=== PATIENT | male | born 1945 | race Caucasian/White ===

== ENCOUNTER 2022-06-03 15:32 | Outpatient (CLI) | payer MEDICARE, BC | END 2022-06-03 15:33 | disposition home or self-care (01) | LOC: CSHRAD 15:32 | PROVIDERS: ATTEND Internal Medicine | DX: S93.401A Sprain of unspecified ligament of right ankle, initial encounter (principal); M25.571 Pain in right ankle and joints of right foot; M25.471 Effusion, right ankle; S82.831A Other fracture of upper and lower end of right fibula, initial encounter for closed fracture ==

== ENCOUNTER 2024-07-18 15:31 | Outpatient (CLI) | payer MEDICARE | END 2024-07-18 15:32 | disposition home or self-care (01) | LOC: CSHRAD 15:31 | PROVIDERS: ATTEND Internal Medicine | DX: J40 Bronchitis, not specified as acute or chronic (principal); J98.4 Other disorders of lung | CPT/HCPCS: 71046 ==